=== PATIENT | male | born 1980 | race Caucasian/White ===

== ENCOUNTER 2023-12-11 08:40 | Emergency (ER) | payer BC, SELFPAY ==
[2023-12-11 08:44] VITALS: BP 134/91; BMI 30.4
[2023-12-11 08:46] LABS: Glucose - Point of Care 116 mg/dl (70-99)
[2023-12-11 09:03] LABS: % Basophils 0.8 % (0-2); % Eosinophils 4.4 % (0-6); % Immature Granulocytes 0.3 % (0-0.5); % Lymphocytes 28.9 % (20.5-51.1); % Monocytes 6.3 % (1.7-9.3); % Neutrophils 59.3 % (42.2-75.2); Absolute Basophils 0.1 10^3/uL (0-0.2); Absolute Eosinophils 0.3 10^3/uL (0-0.7); Absolute Lymphocytes 1.9 10^3/uL (1.2-3.4); Absolute Monocytes 0.4 10^3/uL (0.1-0.6); Absolute Neutrophils 3.8 10^3/uL (1.4-6.5); Hematocrit 38.6 % (39.0-52.0); Hemoglobin 13.1 g/dL (13.0-18.0); Mean Corp Hgb Conc. 33.9 g/dL (33.0-37.0); Mean Corpuscular Hgb 29.1 pg (27.0-31.0); Mean Corpuscular Volume 85.8 fL (80.0-94.0); Mean Platelet Volume 9.7 fL (7.4-10.4); Nucleated Red Blood Cells % 0 % (-); Platelet Count 181 10^3/uL (130-400); Red Cell Dist. Width 13.1 % (11.5-14.5); White Blood Cell Count 6.4 10^3/uL (4.8-10.8)
[2023-12-11 09:17] LABS: ALT (SGPT) 38 U/L (0-50); AST (SGOT) 27 U/L (17-59); Albumin 3.9 g/dl (3.5-5.0); Alkaline Phosphatase 58 U/L (38-126); Blood Urea Nitrogen 15 mg/dl (9-20); Calcium 9.4 mg/dl (8.4-10.2); Carbon Dioxide 24 mmol/L (22-30); Chloride 109 mmol/L (98-107); Estimated Creatinine Clearance > 125 ml/min; Glucose 120 mg/dl (70-99); Potassium 4.3 mmol/L (3.5-5.1); Sodium 139 mmol/L (135-145); Total Bilirubin 0.9 mg/dl (0.2-1.3); Total Protein 7.3 g/dl (6.3-8.2); eGFR > 60.00
--- NOTE | 2023-12-11 09:23 | ED.GENMED ---
History of Present Illness
General
Chief Complaint: Fainting/Passed Out
Source: patient
Time Seen by Provider: 12/11/23 09:07
Travel History
Have you had any contact with someone who has COVID-19?: No
Do you have any symptoms of coronavirus? Fever > 100 degrees, chills, cough, shortness of breath, sore throat, loss of taste or smell, muscle aches, or headache?: No
History of Present Illness
History of Present Illness:
43-year-old male with a history of a right lower extremity wound who was at the wound center to have his first debridement and started to feel lightheaded as he was sitting in the chair. He describes feeling like he was going to pass out and
reportedly had a syncopal event that was short-lived. There was no postictal confusion or incontinence. Patient arrives in the emergency department feeling perfectly well with the exception of slight nausea. He denies preceding or postevent chest
pain, palpitations, dyspnea, headache, neck pain, abdominal pain, or other complaints. Patient states he has had vasovagal events in the past and this was identical to the past events.
Past History
Past History
ED Past Medical History: None
ED Past Surgical History: Orthopedic
Patient has exhibited threatening behavior?: No
Social History
Tobacco: Former smoker
Alcohol: Occasional
Drug: None
Personal:
Living: with family
Employment: Employed
Phy Exam
Physical Exam
Physical Exam:
GENERAL: Alert , in no apparent distress
EYE: pupils equal and reactive
NECK: Supple, no significant adenopathy.
ENT: o/p clr, mmm.
CARDIAC: Regular rate and rhythm, no murmurs noted.
LUNGS: Clear breath sounds bilaterally, no acute respiratory distress, no wheezes/rales/rhonchi
ABDOMEN: Soft, without focal tenderness, no r/g, no cvat
NEUROLOGICAL: Alert and oriented, no focal neuro deficits
SKIN: Warm and dry, skin intact.
MUSCULOSKELETAL: No edema, well perfused.
PSYCH: Normal and appropriate interaction.
Course
Orders/Labs/Results
Orders:
Orders
12/11/23 08:42
Electrocardiogram (*1) Urgent
Reason for Study: Chest Pain
EKG- Treatment ONCE
12/11/23 08:53
Complete Blood Count/With Diff Urgent
Comprehensive Metabolic Panel Urgent
Abnormal Lab Results
12/11/23 12/11/23
08:43 08:53
RBC 4.50 L 10^6/uL
(4.70-6.10)
Hct 38.6 L %
(39.0-52.0)
Chloride 109 H mmol/L
(98-107)
Glucose 120 H mg/dl
(70-99)
POC Glucose 116 H mg/dl
(70-99)
12/11/23 08:53
12/11/23 08:53
Vital Signs
Initial and Last Documented VS:
Initial Vital Signs
Temp Pulse Resp BP Pulse Ox
98.1 F 76 18 134/91 96
12/11/23 08:44 12/11/23 08:44 12/11/23 08:44 12/11/23 08:44 12/11/23 08:44
Last Documented Vital Signs
Temp Pulse Resp BP Pulse Ox
98.1 F 60 12 134/91 96
12/11/23 08:44 12/11/23 09:15 12/11/23 09:15 12/11/23 08:44 12/11/23 08:44
*Critical Care Note
Total Time (30-74mins, 75-104mins- exclusive of procedures): Not Applicable
Update Note
Update Note:
Patient presents to the Emergency Department with syncope___
Number and Complexity of Problems Addressed at the Encounter
� Chronic conditions affecting care:
� Acute Exacerbation and/or Progression of Chronic Illness:
� Differential Diagnosis includes: But not limited to seizure, dehydration, vasovagal related event, etc. etc.
Amount and/or Complexity of Data to be Reviewed and Analyzed
� I performed an independent evaluation of and my interpretation is:
EKG: Read by me, normal sinus rhythm, normal rate, normal axis, no acute ischemia
CT:
Xrays:
Laboratory Studies: Generally unremarkable
Other:
� Review of other/old records reveals:
� Clinical information was obtained by an independent historian:
� Prescriptions/Medications Considered but not given:
� Further testing considered but not performed:
Risk of Complications and/or Morbidity or Mortality of Patient Management
� Social determinants of health affecting care:
� Discussion with other providers (PCP, Hospitalists, Consultants, etc):
� Escalation of care including admission/observation vs risk of discharge considered: 9:25 AM well-appearing male, normal vitals, history very suggestive of vasovagal events, normal exam here, ECG unremarkable. Discussed with
patient portance of follow-up and reasons return to the ER.
ED Attending Note
-
Portions of this chart may have been created with voice recognition software.� Occasional wrong word or��sound alike� substitutions may have occurred due to the inherent limitations of voice recognition software.
Discharge Plan
Departure
Patient Disposition: Home (Routine Discharge)
Date of Disposition: 12/11/23
Time of Disposition: 09:23
Patient with high blood pressure during this ER visit?: Yes
Condition: Good
Discharge Problem:
Syncope
Instructions: Syncope (Fainting) (DC), BLOOD PRESSURE
Prescriptions:
No Action
No Current Medications
0
Referrals:
Ana María Ewing CRNP [Family Provider] - Next open appointment
Activity Restrictions/Additional Instructions:
IF YOU DEVELOP CHEST PAIN, SHORTNESS OF BREATH, NAUSEA, VOMITING, FEVER, CHILLS, DIZZINESS, NUMBNESS, TINGLING, WEAKNESS, OR OTHER WORRISOME SIGNS, PLEASE RETURN TO THE ER IMMEDIATELY.
Interventions
Interventions:
*Risk Screen - Suicide Last Done: 12/11/23 08:44
*General Assessment Last Done: 12/11/23 08:44
*Neglect/Abuse Screening Last Done: 12/11/23 08:44
*ED COVID-19 Vaccine History Last Done: 12/11/23 08:44
Discharge Date and Time
Print Language: BENGALI
== END 2023-12-11 09:28 | disposition home or self-care (01) ==
LOC: EMR 08:40
PROVIDERS: Emergency Medicine; EMERGENCY PHYSICIAN Emergency Medicine
DX: R55 Syncope and collapse (principal); R11.0 Nausea; S81.801A Unspecified open wound, right lower leg, initial encounter; X58.XXXA Exposure to other specified factors, initial encounter; R03.0 Elevated blood-pressure reading, without diagnosis of hypertension; Z87.891 Personal history of nicotine dependence
CPT/HCPCS: 99283; 11042; 11045; 80053; 82962; 85025; 93005; 99205

== ENCOUNTER → 2023-12-18 09:00 | Outpatient (REF) | payer BC, SELFPAY | LOC: WOUND 09:00 | PROVIDERS: ATTENDING PHYSICIAN Surgery; FAMILY PHYSICIAN Nurse Practitioner | DX: G40.409 Other generalized epilepsy and epileptic syndromes, not intractable, without status epilepticus (principal); I87.311 Chronic venous hypertension (idiopathic) with ulcer of right lower extremity; L97.312 Non-pressure chronic ulcer of right ankle with fat layer exposed; L97.412 Non-pressure chronic ulcer of right heel and midfoot with fat layer exposed; Z96.7 Presence of other bone and tendon implants | CPT/HCPCS: 99214 ==

== ENCOUNTER → 2023-12-25 09:17 | Outpatient (REF) | payer BC, SELFPAY | LOC: WOUND 09:17 | PROVIDERS: ATTENDING PHYSICIAN Surgery; FAMILY PHYSICIAN Nurse Practitioner | DX: G40.409 Other generalized epilepsy and epileptic syndromes, not intractable, without status epilepticus (principal); I87.311 Chronic venous hypertension (idiopathic) with ulcer of right lower extremity; L97.312 Non-pressure chronic ulcer of right ankle with fat layer exposed; L97.412 Non-pressure chronic ulcer of right heel and midfoot with fat layer exposed; I87.2 Venous insufficiency (chronic) (peripheral); Z96.7 Presence of other bone and tendon implants | CPT/HCPCS: 11042; 11045 ==

== ENCOUNTER 2023-12-29 19:26 | Emergency (ER) | payer BC, SELFPAY ==
[2023-12-29 19:27] VITALS: BP 139/84
--- NOTE | 2023-12-29 21:34 | ED.GENMED ---
History of Present Illness
General
Chief Complaint: Musculo-Skeletal Complaint
Source: patient
Exam Limitations: none
Time Seen by Provider: 12/29/23 20:10
Nursing documentation reviewed up to this point in time: agreed with
History of Present Illness
History of Present Illness:
Patient is a 43-year-old male who dropped a ladder on his right hand fourth digit. He sustained a laceration. He does complain of mild discomfort. He is unsure of his last tetanus. He is right hand dominant.
Past History
Past History
ED Past Medical History: None
ED Past Surgical History: Orthopedic
Patient has exhibited threatening behavior?: No
Social History
Tobacco: Former smoker
Alcohol: Occasional
Drug: None
Personal:
Living: with family
Employment: Employed
Review of Systems
Review of Systems
Allergies reviewed?: Yes
All Other Systems: ROS reviewed and negative except as documented in HPI and ROS
Constitutional: Reports no symptoms
Musculoskeletal: Reports other (Right fourth finger injury/pain/laceration)
Skin: Reports other (See above)
Neurological: Reports no symptoms
Psychiatric: Reports no symptoms
Phy Exam
General Physical Exam
General Presentation: no apparent distress
General age: appears stated age
General Skin: warm and dry
General Habitus: normal
General Mental: alert
General Hydration: appears well hydrated
Neurological Exam
Neurological Exam: alert and oriented x3
Musculoskeletal Exam
Musculoskeletal Exam: other (Right upper extremity strong pulses right fourth finger with 2 and half centimeter horizontal linear full-thickness laceration to volar aspect distal phalanx no tendon deficit no tendon visible normal sensation)
Skin Exam
Skin Exam: normal color and warm/dry
Psychiatric Exam
Psychiatric Exam: normal mood/affect
Course
Orders/Labs/Results
Orders:
Orders
12/29/23 19:29
CR Hand - Right Min 3 Views Urgent
Comment:
Reason For Exam: injury
Vital Signs
Initial and Last Documented VS:
Initial Vital Signs
Temp Pulse Resp BP Pulse Ox
98.3 F 58 18 139/84 98
12/29/23 19:27 12/29/23 19:27 12/29/23 19:27 12/29/23 19:27 12/29/23 19:27
Last Documented Vital Signs
Temp Pulse Resp BP Pulse Ox
98.3 F 58 18 139/84 98
12/29/23 19:27 12/29/23 19:27 12/29/23 19:27 12/29/23 19:27 12/29/23 19:27
Procedures
Laceration Closure
Right Distal Volar Fourth Finger:
Status of Wound: clean
Size of Wound in cm: 2.5
Description of Wound Edges: sharp
Preparation: cleaned with saline
Anesthesia: 1% Lidocaine and Digital-Regional
Revision/Debridement: routine- no revision
Wound exploration: no tendon involvement
Type of Closure: single layer closure and interrupted sutures
Skin Closure Material: 5-0 nylon
Number of sutures: 5
MDM/Problems Addressed
Differential Diagnosis Includes:
Not limited to laceration, tendon injury, fracture, contusion
MDM/Problems Addressed:
Patient with open fracture to right distal phalanx fourth finger. Laceration is through subcutaneous tissue only. Wound was irrigated with copious amounts of saline repaired as documented. Placed in splint. Patient is followed by Dr. Bowling for
ankle wound and previous surgery will DC back to Dr. Bowling further follow-up. Aluminum foam splint applied. Tetanus updated Keflex given.
*Radiology
Radiology exam reviewed: radiology read reviewed
*Critical Care Note
Total Time (30-74mins, 75-104mins- exclusive of procedures): Not Applicable
ED Attending Note
-
Portions of this chart may have been created with voice recognition software.� Occasional wrong word or��sound alike� substitutions may have occurred due to the inherent limitations of voice recognition software.
Discharge Plan
Departure
Patient Disposition: Home (Routine Discharge)
Date of Disposition: 12/29/23
Time of Disposition: 21:41
Patient with high blood pressure during this ER visit?: Yes
Covid-19: Not Applicable
Discharge Problem:
open fracture 4th finger
Instructions: Finger Fracture ED, Laceration Repair With Stitches ED, BLOOD PRESSURE
Prescriptions:
New
cephalexin 500 mg capsule
500 mg PO Q6H Qty: 20 0RF
Referrals:
Leslie Hernandez MD [Family Provider] -
Augusto Bowling MD [Active] -
Activity Restrictions/Additional Instructions:
As discussed keep wound clean and dry for 24 hours after 24 hours you may lightly wash the wound twice a day with soap and water. Pat dry and apply small layer of antibiotic open. Keep splint in place.
Take antibiotic as directed for the next 5 days to prevent infection. This medication was sent to pharmacy. As discussed since this is an open fracture follow-up with orthopedics, hand specialist as soon as possible. Call Monday for an
appointment. He may take Tylenol or ibuprofen for pain. Return if any worsening of symptoms if increased pain swelling redness fever chills drainage or red streaking.
Interventions
Interventions:
*Risk Screen - Suicide Last Done: 12/29/23 19:27
*General Assessment Last Done: 12/29/23 19:27
*Neglect/Abuse Screening Last Done: 12/29/23 19:27
ED-Musculoskeletal Assessment Last Done: 12/29/23 21:06
Discharge Date and Time
Print Language: HEBREW
[2023-12-29] MEDS: ADACEL 0.5 ML IM (21:48)
[2023-12-29] MEDS: KEFLEX 500 MG PO (21:48)
== END 2023-12-29 21:55 | disposition home or self-care (01) ==
LOC: EMR 19:26
PROVIDERS: EMERGENCY PHYSICIAN Emergency Medicine; FAMILY PHYSICIAN Internal Medicine
DX: S62.634B Displaced fracture of distal phalanx of right ring finger, initial encounter for open fracture (principal); W20.8XXA Other cause of strike by thrown, projected or falling object, initial encounter; Z87.891 Personal history of nicotine dependence; Z23 Encounter for immunization; R03.0 Elevated blood-pressure reading, without diagnosis of hypertension
CPT/HCPCS: 12041; 99283; 90471; 29130; 73130; 90715

== ENCOUNTER → 2024-01-01 09:15 | Outpatient (REF) | payer BC, SELFPAY | LOC: WOUND 09:15 | PROVIDERS: ATTENDING PHYSICIAN Surgery; FAMILY PHYSICIAN Nurse Practitioner | DX: G40.409 Other generalized epilepsy and epileptic syndromes, not intractable, without status epilepticus (principal); I87.311 Chronic venous hypertension (idiopathic) with ulcer of right lower extremity; L97.312 Non-pressure chronic ulcer of right ankle with fat layer exposed; L97.412 Non-pressure chronic ulcer of right heel and midfoot with fat layer exposed; I87.2 Venous insufficiency (chronic) (peripheral); Z96.7 Presence of other bone and tendon implants | CPT/HCPCS: 11042; 97597 ==

== ENCOUNTER → 2024-01-09 09:11 | Outpatient (REF) | payer BC, SELFPAY | LOC: WOUND 09:11 | PROVIDERS: ATTENDING PHYSICIAN Surgery; FAMILY PHYSICIAN Nurse Practitioner | DX: G40.409 Other generalized epilepsy and epileptic syndromes, not intractable, without status epilepticus (principal); I87.311 Chronic venous hypertension (idiopathic) with ulcer of right lower extremity; L97.312 Non-pressure chronic ulcer of right ankle with fat layer exposed; L97.412 Non-pressure chronic ulcer of right heel and midfoot with fat layer exposed; I87.2 Venous insufficiency (chronic) (peripheral); Z96.7 Presence of other bone and tendon implants | CPT/HCPCS: 99212 ==

== ENCOUNTER → 2024-01-23 10:48 | Outpatient (REF) | payer BC, SELFPAY | LOC: WOUND 10:48 | PROVIDERS: ATTENDING PHYSICIAN Surgery; FAMILY PHYSICIAN Nurse Practitioner | DX: G40.409 Other generalized epilepsy and epileptic syndromes, not intractable, without status epilepticus (principal); I87.311 Chronic venous hypertension (idiopathic) with ulcer of right lower extremity; L97.312 Non-pressure chronic ulcer of right ankle with fat layer exposed; L97.412 Non-pressure chronic ulcer of right heel and midfoot with fat layer exposed; I87.2 Venous insufficiency (chronic) (peripheral); Z96.7 Presence of other bone and tendon implants | CPT/HCPCS: 11042 ==

== ENCOUNTER → 2024-02-05 13:12 | Outpatient (REF) | payer BC, SELFPAY | LOC: WOUND 13:12 | PROVIDERS: ATTENDING PHYSICIAN Surgery; FAMILY PHYSICIAN Nurse Practitioner | DX: G40.409 Other generalized epilepsy and epileptic syndromes, not intractable, without status epilepticus (principal); I87.311 Chronic venous hypertension (idiopathic) with ulcer of right lower extremity; L97.312 Non-pressure chronic ulcer of right ankle with fat layer exposed; L97.412 Non-pressure chronic ulcer of right heel and midfoot with fat layer exposed; I87.2 Venous insufficiency (chronic) (peripheral); Z96.7 Presence of other bone and tendon implants | CPT/HCPCS: 11042 ==

== ENCOUNTER → 2024-02-19 10:08 | Outpatient (REF) | payer BC, SELFPAY | LOC: WOUND 10:08 | PROVIDERS: ATTENDING PHYSICIAN Surgery; FAMILY PHYSICIAN Nurse Practitioner | DX: G40.409 Other generalized epilepsy and epileptic syndromes, not intractable, without status epilepticus (principal); I87.311 Chronic venous hypertension (idiopathic) with ulcer of right lower extremity; L97.312 Non-pressure chronic ulcer of right ankle with fat layer exposed; L97.412 Non-pressure chronic ulcer of right heel and midfoot with fat layer exposed; I87.2 Venous insufficiency (chronic) (peripheral); Z96.7 Presence of other bone and tendon implants | CPT/HCPCS: 99212 ==

== ENCOUNTER → 2024-02-28 15:01 | Outpatient (REF) | payer BC, SELFPAY | LOC: RAD 15:01 | PROVIDERS: ATTENDING PHYSICIAN Surgery; FAMILY PHYSICIAN Internal Medicine | DX: G40.409 Other generalized epilepsy and epileptic syndromes, not intractable, without status epilepticus (principal); I87.2 Venous insufficiency (chronic) (peripheral) | CPT/HCPCS: 93971 ==